=== PATIENT | female | born 1950 | race Two or more races ===

== ENCOUNTER 2023-02-26 11:42 | Emergency (ER) | payer OTHER ==
[~2023-02-26] VITALS: Ht 162.6 cm; Wt 85.7 kg
[2023-02-26] MEDS ORDERED: GLUMETZA500 MG (12:18)
[2023-02-26] MEDS ORDERED: TOPROL XL25 M1 (12:18)
[2023-02-26] MEDS ORDERED: NORVASC2.5 M1 (12:18)
== END 2023-02-26 14:59 | disposition home or self-care (01) ==
LOC: ER 11:42
DX: M12.561 Traumatic arthropathy, right knee (principal); E11.9 Type 2 diabetes mellitus without complications; Z79.84 Long term (current) use of oral hypoglycemic drugs; I10 Essential (primary) hypertension